=== PATIENT | female | born 1960 | race Caucasian/White ===

== ENCOUNTER → 2016-07-07 | Outpatient (CLI) | payer BC ==
[~2016-07-07] MED LIST: CALC-220 PO; CALC500T83 PO; CEPH500C PO; IBUP-103 PO; LEVO50TA PO; PRENTAB26 PO
[2016-07-07 12:37] LABS: BASO ABS # 0.06 K/uL (0-0.2); COMPLETE YES; EOS % 6.9 %; HEMATOCRIT 40.1 % (37-47); IG% 0.2 %; LYMPH % 18.8 %; LYMPH ABS # 1.15 K/uL (1.2-3.4); MEAN CELL VOLUME 90.3 fL (80-100); MEAN CORPUSCULAR HGB CONC 33.2 g/dl (32-36); MEAN PLATELET VOLUME 11.1 fL (7.4-10.4); NEUT % 63.1 %; PLATELET COUNT 224 K/uL (130-400); RED BLOOD COUNT 4.44 M/uL (4.2-5.4); WHITE BLOOD COUNT 6.12 K/uL (4.8-10.8)
[2016-07-07 12:48] LABS: BLOOD UREA NITROGEN 17 mg/dl (7-18); BUN/CREATININE RATIO 17.7 (10-20); C-REACTIVE PROTEIN < 0.29 mg/dl (0-0.29); CALCIUM 9.3 mg/dl (8.5-10.1); CARBON DIOXIDE 27 mmol/L (21-32); CHLORIDE 107 mmol/L (98-107); CREATININE 0.93 mg/dl (0.60-1.20); GLUCOSE 64 mg/dl (70-99); POTASSIUM 3.5 mmol/L (3.5-5.1); SODIUM 143 mmol/L (136-145)
== END | disposition home or self-care (01) ==
LOC: C.LABBFT 08:35
PROVIDERS: ATTEND Nurse Practitioner
DX: R14.0 Abdominal distension (gaseous) (principal); R19.7 Diarrhea, unspecified

== ENCOUNTER → 2016-07-08 | Outpatient (CLI) | payer BC, OTHER ==
[2016-07-16 11:33] LABS: ISOSPORA+CYCLOSPORA NOT DETECTED; O&P GIARDIA AG NOT DETECTED (NOT DETECTED); O&P SOURCE OTHER-STOOL
== END | disposition home or self-care (01) ==
LOC: C.LABSPEC 17:29
PROVIDERS: ATTEND Nurse Practitioner
DX: R19.7 Diarrhea, unspecified (principal)

== ENCOUNTER → 2016-08-01 | Outpatient (CLI) | payer BC ==
[~2016-08-01] MED LIST changes: +OPTIRAY 320 IV PRN
--- NOTE | 2016-08-01 16:26 | DIAGNOSTIC IMAGING REPORT ---
CT OF THE ABDOMEN AND PELVIS WITH CONTRAST CLINICAL HISTORY: Abdominal pain and diarrhea. COMPARISON STUDY: CT of the abdomen and pelvis October 23, 2015 and pelvic ultrasound October 26, 2015. TECHNIQUE: Following IV administration of 94 mL of Optiray-320, axial images of the abdomen and pelvis were obtained from the lung bases to the proximal femurs. Images were reviewed in the axial, sagittal, and coronal planes. IV contrast was administered without complication. CT DOSE: 450.36 mGy.cm FINDINGS: No pneumatosis, free air or portal venous gas is present. The liver, spleen, adrenal glands, kidneys and pancreas are normal. There is no evidence for a bowel obstruction. There is left colon diverticulosis without evidence for acute diverticulitis. There is no hydronephrosis. Mild bladder wall thickening is noted. No suspicious osseous lesions are present. The appendix is normal. IMPRESSION: 1. No acute process within the abdomen or pelvis. 2. Mild bladder wall thickening which could be correlated with urinalysis. 3. Left colon diverticulosis without evidence for acute diverticulitis. Electronically signed by: Kelton Veliz M.D. 08/01/2016 4:25 PM Dictated Date/Time: 08/01/2016 4:20 PM
== END | disposition home or self-care (01) ==
LOC: C.CTS 13:42
PROVIDERS: ATTEND Internal Medicine
DX: R19.7 Diarrhea, unspecified (principal); R10.9 Unspecified abdominal pain; K57.30 Diverticulosis of large intestine without perforation or abscess without bleeding

== ENCOUNTER → 2016-09-12 | Outpatient (CLI) | payer BC ==
[~2016-09-12] MED LIST changes: -OPTIRAY 320 IV PRN
--- NOTE | 2016-09-12 10:31 | DIAGNOSTIC IMAGING REPORT ---
CHEST CT WITHOUT CONTRAST CT DOSE: 237.49 mGy.cm HISTORY: Pulmonary nodule R91.1 Pulmonary nodule, right1 year follow-[id number] TECHNIQUE: Multiaxial CT images of the chest were performed without contrast. COMPARISON: 11/13/2014 FINDINGS: Unchanged poorly defined 7 mm groundglass nodule superior segment right lower lobe. Lungs otherwise are clear. No new or interval findings. Hilar and mediastinal regions are unremarkable. Limited evaluation of the upper abdomen is unremarkable. IMPRESSION: 1. Stable 7 mm parenchymal nodule superior segment right lower lobe. 2. No evidence for new or interval process compared to the prior study dated 3. No additional follow-up is indicated. Electronically signed by: Shawn Pierre M.D. 09/12/2016 10:29 AM Dictated Date/Time: 09/12/2016 10:24 AM
== END | disposition home or self-care (01) ==
LOC: C.CTS 10:07
PROVIDERS: ATTEND Internal Medicine
DX: R91.1 Solitary pulmonary nodule (principal)

== ENCOUNTER → 2016-12-18 | Outpatient (CLI) | payer BC ==
[2016-12-18 18:12] LABS: THYROID STIMULATING HORMONE 0.009 uIu/ml (0.300-4.500)
== END | disposition home or self-care (01) ==
LOC: C.LABBFT 15:08
PROVIDERS: ATTEND Physician Assistant Medical
DX: E03.9 Hypothyroidism, unspecified (principal)

== ENCOUNTER 2017-01-10 14:23 | Emergency (ER) | payer BC ==
[~2017-01-10] VITALS: Ht 182.9 cm; Wt 79.5 kg
[~2017-01-10 14:23] MED LIST changes: -CALC500T83 PO; -CEPH500C PO; -LEVO50TA PO
[2017-01-10 14:31] VITALS: TEMP 36.8; Ht 182.9 cm; Wt 79.5 kg
[2017-01-10] MEDS ORDERED: LIDOCAINE/EPINEPHRINE 1% 20 ML VIAL INFIL ONE (14:45)
[2017-01-10] MEDS ORDERED: IBUPROFEN 600 MG TAB PO STA (14:53)
--- NOTE | 2017-01-10 15:41 | EMERGENCY ROOM VISIT NOTE ---
History First contact with patient: 14:27 Chief Complaint: LACERATION/CUT (SUT/DERMABOND) Stated Complaint: FALL/LACERATION Nursing Triage Summary: patient to ED via EMS for laceration to right lateral leg, patient reports slipping on steps, unsure of what lacerated leg. bleeding controlled at time of triage, wound cleaned and dressed. PMS intact distally. History of Present Illness The patient is a 56 year old female who presents to the Emergency Room with complaints of a right leg laceration. The patient states that she slipped and fell on her front steps and cut her right leg. She reports pain in the right leg and right upper arm. She rates her discomfort a 5/10. She states her tetanus status is up-to-date. She denies hitting her head or any other injuries. The fall was not associated with any dizziness/lightheadedness, chest pain or shortness of breath. Review of Systems A complete 10 point review of systems was reviewed with the patient with pertinent positives and negatives as per history of present illness. All else were negative. Family History FH: heart disease Social History Smoking Status: Never Smoker Drug Use: none Occupation Status: employed, other Current/Historical Medications Scheduled Calcium (Calcium), 500 MG PO 3XWK Cephalexin Monohydrate (Keflex), 500 MG PO QID Ibuprofen Tab (Advil), 200 MG PO BID Levothyroxine Sodium (Synthroid), 50 MCG PO DAILY Multivit/Min/Iron/Fol Ac/Pren ( Vitamin), 1 TAB PO 3XWK Physical Exam Vital Signs Date Time Temp Pulse Resp B/P (MAP) Pulse Ox O2 Delivery O2 Flow Rate FiO2 01/10/17 17:57 75 18 137/94 97 01/10/17 14:31 36.8 83 22 120/88 98 Room Air Physical Exam VITALS: Vitals are noted on the nurse's note and reviewed by myself. Vital signs stable. GENERAL: This is a 56-year-old female, in no acute distress, nondiaphoretic, well-developed well-nourished. SKIN: There is an 8.5 cm gaping laceration to the lateral aspect of the right upper leg. The laceration extends through the subcutaneous tissue but does not appear to extend into the muscle. There is no active bleeding. There are no foreign bodies in the wound. HEART: Regular rate and rhythm without murmurs gallops or rubs. LUNGS: Clear to auscultation bilaterally without wheezes, rales or rhonchi. MUSCULOSKELETAL: There is tenderness to palpation in the right upper legs, proximal to the knee. Full range of motion of the right lower extremity. Dorsalis pedis pulse 2+. There is mild tenderness to palpation of the right upper arm. Full range of motion of the shoulder and elbow. NEURO: Patient was alert and oriented to person place and time. Normal sensation to light and sharp touch. Medical Decision & Procedures ER Provider Diagnostic Interpretation: R HUMERUS MIN 2 VIEWS ROUTINE FINDINGS: The humerus is slightly high right within the thyroid fossa. Mild glenohumeral and acromioclavicular osteoarthritis with spurring and subcortical cystic change of the humeral head. No acute fracture or dislocation. Soft tissues and imaged lung castillo are unremarkable. IMPRESSION: No acute fracture or dislocation. R FEMUR 2 VIEWS ROUTINE FINDINGS: Mild right hip osteoarthritis. Tricompartmental degenerative changes about the knee are noted with lateral compartment chondrocalcinosis. There are probable varicosities was secured to the knee. No acute fracture or dislocation. IMPRESSION: Degenerative changes as above without acute fracture or dislocation. Medications Administered Medications (Trade) Dose Ordered Sig/Katie Route Start Time Stop Time Status Last Admin Dose Admin Ibuprofen (Motrin Tab) 600 mg NOW STAT PO 01/10/17 14:53 01/10/17 14:54 DC 01/10/17 15:15 600 MG Cephalexin Monohydrate (Keflex 500MG Home Pack) 1 homepack NOW ONCE PO 01/10/17 19:15 01/10/17 19:16 DC 01/10/17 19:35 1 HOMEPACK Procedure Verbal consent was obtained to perform the procedure. Using sterile technique the wound was cleaned with Betadine. The area was sterilely draped. 10 ml of 1 % buffered lidocaine with epinephrine was used to anesthetize the laceration. Once the patient was anesthetized, the wound was copiously irrigated under pressure with sterile saline. The wound was explored and there were no deep structures injured such as tendons, bone, or significant blood vessels. The laceration was repaired using 8 simple interrupted 4-0 Vicryl sutures and 13 simple interrupted 4-0 nylon sutures with the wound edges being well approximated. The patient tolerated the procedure well. Hemostasis was achieved. Medical Decision The patient was evaluated as above. X-rays of the right humerus and right femur were obtained and read by radiology with no acute findings. Laceration repair was performed as noted above. The laceration did extend through the subcutaneous tissue, but fortunately not into the muscle. Patient was placed on crutches and will be given Keflex to prevent infection. She was advised to follow-up with orthopedics for a recheck. She verbalized understanding of my assessment and treatment plan and was discharged home in good condition. Medication Reconcilliation Current Medication List: was personally reviewed by me Blood Pressure Screening Patient's blood pressure: Normal blood pressure Impression Primary Impression: Laceration of lower extremity Departure Information Dispostion Home / Self-Care Condition GOOD Prescriptions Cephalexin Monohydrate (Keflex) 500 Mg Cap 500 MG PO QID for 7 Days, #28 CAP Prov: Kelli Cantrell .MARIMAR 01/10/17 Referrals Felipe Landeros M.D. (PCP) Roger Panda M.D. Patient Instructions My [facility] Additional Instructions You have received 13 sutures on your right leg. These sutures are NOT dissolvable and WILL need to be removed by a health care provider. You should call orthopedics to schedule a follow-up appointment this week. Keflex as prescribed. This is an antibiotic to prevent infection. Use crutches to keep off the leg until follow-up with orthopedics. Proper wound care is essential for adequate wound healing and infection prevention. You can shower and clean the wound with soap and water. Do not scour over the wound, pat dry with a towel. Do not submerse the wound (i.e. bathe or dish wash) until the sutures have been removed. You can use an antibiotic ointment with a dressing over the wound for the next 3-4 days. After this time you may leave the wound dry and open to the air. If crust develops over the wound you can use a Q-tip to apply a 1:1 peroxide:water solution to clean the wound. Look for signs of infection of the wound including: increased pain, swelling, foul discharge, streaking, or increased temperature. If any of these are noticed you should return to the Emergency Department for further assessment and treatment. As with any laceration you may have received nerve damage to the surrounding tissues. This damage may or may not be permanent. You should keep the area covered with sunscreen for the first 6 months to 1 year when at risk for exposure to help minimize scarring. You can also use scar reducing creams or Vitamin E oil to help minimize scarring. For pain control, you can use the following [id number] medicines (if >12 yo): - Regular strength (325mg/tab) Tylenol (acetaminophen) 2 tabs every 4-6 hours as needed. Do not exceed 12 tablets in a 24 hour period. Avoid taking more than 4 grams (4000 mg) of Tylenol per day. This includes any other sources of acetaminophen you may take on a regular basis. - Regular strength (200 mg/tab) Advil (ibuprofen) 1-2 tabs every 4-6 hours as needed. Do not exceed a dose of 3200 mg per day. Return to the emergency department if your symptoms worsen despite treatment course outlined above. Problem Qualifiers Primary Impression: Laceration of lower extremity Encounter type: initial encounter Laterality: right Qualified Codes: S81.811A - Laceration without foreign body, right lower leg, initial encounter
[2017-01-10] MEDS ORDERED: LEVO50TA PO (16:16)
[2017-01-10] MEDS ORDERED: CALC500T83 PO (16:19)
--- NOTE | 2017-01-10 16:28 | DIAGNOSTIC IMAGING REPORT ---
R FEMUR 2 VIEWS ROUTINE HISTORY: 56 years-old Female fall, right leg injury acute right leg injury status post fall. COMPARISON: Right hip radiographs 11/13/2014 TECHNIQUE: None available FINDINGS: Mild right hip osteoarthritis. Tricompartmental degenerative changes about the knee are noted with lateral compartment chondrocalcinosis. There are probable varicosities was secured to the knee. No acute fracture or dislocation. IMPRESSION: Degenerative changes as above without acute fracture or dislocation. The above report was generated using voice recognition software. It may contain grammatical, syntax or spelling errors. Electronically signed by: Lopez Fan M.D. 01/10/2017 4:26 PM Dictated Date/Time: 01/10/2017 4:22 PM
--- NOTE | 2017-01-10 16:30 | DIAGNOSTIC IMAGING REPORT ---
R HUMERUS MIN 2 VIEWS ROUTINE HISTORY: 56 years-old Female fall, right arm injury acute right arm pain status post fall COMPARISON: None available TECHNIQUE: 2 views of the right humerus FINDINGS: The humerus is slightly high right within the thyroid fossa. Mild glenohumeral and acromioclavicular osteoarthritis with spurring and subcortical cystic change of the humeral head. No acute fracture or dislocation. Soft tissues and imaged lung castillo are unremarkable. IMPRESSION: No acute fracture or dislocation. The above report was generated using voice recognition software. It may contain grammatical, syntax or spelling errors. Electronically signed by: Lopez Fan M.D. 01/10/2017 4:29 PM Dictated Date/Time: 01/10/2017 4:27 PM
[2017-01-10] MEDS ORDERED: CEPH500C PO (16:43)
[2017-01-10 17:57] VITALS: BP 137/94; PULSE 75; O2SAT 97
[2017-01-10] MEDS ORDERED: CEPHALEXIN 500MG HOME PACK 1 EA BTL PO ONE (19:15)
== END 2017-01-10 17:59 | disposition home or self-care (01) ==
LOC: EDBD 14:23 → C.EDB 14:25
DX: S81.811A Laceration without foreign body, right lower leg, initial encounter (principal); W10.9XXA Fall (on) (from) unspecified stairs and steps, initial encounter; W26.9XXA Contact with unspecified sharp object(s), initial encounter

== ENCOUNTER → 2017-02-24 | Outpatient (CLI) | payer BC ==
[~2017-02-24] MED LIST changes: -CALC-220 PO; +CALC500T83 PO; +LEVO50TA PO
[2017-02-24 17:16] LABS: THYROID STIMULATING HORMONE 3.74 uIu/ml (0.300-4.500)
== END | disposition home or self-care (01) ==
LOC: C.LABBFT 13:39
PROVIDERS: ATTEND Physician Assistant Medical
DX: E03.9 Hypothyroidism, unspecified (principal)

== ENCOUNTER → 2017-03-24 | Outpatient (CLI) | payer BC ==
--- NOTE | 2017-03-25 14:10 | MAMMOGRAPHY REPORT ---
BILATERAL DIGITAL SCREENING MAMMOGRAM TOMOSYNTHESIS WITH CAD: 03/24/2017 CLINICAL HISTORY: Routine screening. Patient has no complaints. TECHNIQUE: Breast tomosynthesis in addition to standard 2D mammography was performed. Current study was also evaluated with a Computer Aided Detection (CAD) system. COMPARISON: Comparison is made to exams dated: 03/21/2016 mammogram, 03/19/2015 mammogram, 4 mammogram, 03/15/2013 mammogram, 03/11/2012 mammogram, and 03/10/2011 mammogram - [facility]. BREAST COMPOSITION: The tissue of both breasts is heterogeneously dense, which may obscure small mas ses. FINDINGS: There has been no significant interval change comparing to prior mammograms. No suspicious mass, architectural distortion or cluster of suspicious microcalcifications is seen. IMPRESSION: ACR BI-RADS CATEGORY 1: NEGATIVE There is no mammographic evidence of malignancy. A 1 year screening mammogram is recommended. The pa tient will receive written notification of the results. Approximately 10% of breast cancers are not detected with mammography. A negative mammographic report should not delay biopsy if a clinically suggestive mass is present. Denise Mcintyre M.D. ay/:03/24/2017 16:02:22 Minute Clerk: Diane PRUITT(R)(M), [facility] letter sent: Normal 1/2 BI-RADS Code: ACR BI-RADS Category 1: Negative
== END | disposition home or self-care (01) ==
LOC: C.MAMM 12:35
PROVIDERS: ATTEND Obstetrics & Gynecology
DX: Z12.31 Encounter for screening mammogram for malignant neoplasm of breast (principal)

== ENCOUNTER → 2017-03-25 | Outpatient (CLI) | payer BC | END | disposition home or self-care (01) | LOC: C.CPL 10:18 | DX: M75.41 Impingement syndrome of right shoulder (principal) ==